=== PATIENT | female | born 1945 | race Hispanic/Latino ===

== ENCOUNTER 2019-05-18 08:23 | Day surgery (SDC) | payer OTHER ==
[2019-05-18 08:15] LABS: Absolute Lymphocytes (CBC) 2.6 K/uL (0.7-4.9); Basophils % 0.7 % (0-1.3); Hematocrit 42.3 % (36.0-45.0); Lymphocytes % 36.2 % (15.3-44.8); MPV 8.8 fL (7.6-11.3); RBC Red Blood Cell Count 4.31 M/uL (3.86-4.86)
[~2019-05-18 08:23] MED LIST: BACITRACIN 50000 UNIT VIAL ONE; GENTAMICIN 100 MG/100 ML BAG 0 ML IV ONE; GENTAMICIN SULF 80 MG/2ML INJ ONE; Ringers Lactate 0 ML IV ONE
[2019-05-18] MEDS ORDERED: propofoL 200 MG/20 ML VIAL IV ONE (08:26)
[2019-05-18] MEDS ORDERED: GLYCOPYRROLATE 0.2 MG/ML SYR ONE ×3 (08:26→12:35)
[2019-05-18] MEDS ORDERED: LIDOCAINE 2% MPF 5 ML VIAL ONE (08:26)
[2019-05-18] MEDS ORDERED: MIDAZOLAM HCL 2 MG/2 ML INJ ONE (08:26)
[2019-05-18] MEDS ORDERED: ROCURONIUM 50 MG/5 ML VIAL IV ONE (08:27)
[2019-05-18] MEDS ORDERED: FENTANYL CITR 250 MCG/5 ML ONE (08:27)
--- NOTE | 2019-05-18 08:32 | RAD REPORT ---
EXAM DESCRIPTION: BALAJINickolasteresa Single View05/18/2019 8:23 am CLINICAL HISTORY: Preop for breast augmentation COMPARISON: none FINDINGS: The lungs appear clear of acute infiltrate. The heart is normal size IMPRESSION: No acute abnormalities displayed
[2019-05-18] MEDS ORDERED: NS 0.9% VIAL 20 ML ONE ×2 (08:35→09:35)
[2019-05-18] MEDS ORDERED: SCOPOLAMINE HYDROBROMIDE PATCH TD ONE (08:43)
[2019-05-18 08:44] LABS: Urine Appearance CLEAR; Urine Bilirubin NEGATIVE (NEG); Urine Blood NEGATIVE (NEG); Urine Color YELLOW; Urine Glucose 3+ (NEG); Urine Protein NEGATIVE (NEG); Urine Specific Gravity 1.025 (1.005-1.030); Urine Urobilinogen 0.2 mg/dL (0.2-1.0); Urine pH 5.5 (5.0-7.0)
[2019-05-18] MEDS ORDERED: NA CHLORIDE 0.9% 1,000 ML ONE (08:44)
[2019-05-18 08:47] LABS: Urine Microscopic Reflex NO UMIC
[2019-05-18] MEDS ORDERED: CLINDAMYCIN INJ 300 MG in NA CHLORIDE 0.9% 50 ML IV ONE (09:00)
[2019-05-18] MEDS ORDERED: ONDANSETRON 4 MG/2 ML VIAL ONE ×2 (09:20→13:58)
[2019-05-18] MEDS ORDERED: LIDOCAINE 1% W/EPI 1:100,000 MDV 20 ML VIAL ONE ×2 (09:28→09:33)
[2019-05-18] MEDS ORDERED: EPHEDRINE SULF 50 MG/ML VIAL ONE (09:37)
[2019-05-18] MEDS: NA CHLORIDE 0.9% 2,000 ML ONE ×2 (10:31→10:56)
[2019-05-18] MEDS ORDERED: MORPHINE 10 MG/ML VIAL ONE (10:58)
--- NOTE | 2019-05-18 11:17 | EKG ---
Test Date: 2019-05-18 Test Time: 07:52:49 Vice President Of Instruction: NEAL MEASUREMENT RESULTS: Intervals: Rate: 78 OH: 158 QRSD: 78 QT: 374 QTc: 426 [place]: P: 28 OH: 158 QRS: 15 T: 63 INTERPRETIVE STATEMENTS: Normal sinus rhythm Cannot rule out Anterior infarct, age undetermined Abnormal ECG No previous ECG available for comparison Electronically Signed On 05-18-19 11:16:03 SCHEDULING SPECIALIST by Efren Castillo
[2019-05-18] MEDS ORDERED: NEOSTIGMINE 1 MG/ML -5 ML ONE (12:36)
[2019-05-18] MEDS ORDERED: Mastisol Adhesive Liq ONE (13:23)
--- NOTE | 2019-05-18 13:58 | OP ---
Surgeon: Bjorn Shelby MD Aerodynamics Professor: Andrei. Preoperative Diagnosis: Breast descent and enlargement, asymmetry. Postoperative Diagnosis: Breast descent and enlargement, asymmetry. Procedure: Breast lift with minimal reduction. Anesthesia: General. Procedure In Detail: After satisfactory induction of general anesthesia, the chest was prepped with DuraPrep and dry sterile drapes were applied in the usual manner. A 45 mm template was used to outli ne the right and left areolas. Then, transverse curvilinear incisions were made and the intervening skin was de-epithelized with dermabrader or EpiCut. Then, transverse incision and lateral incision w ere made. The flap was elevated of 1.1 cm thickness toward the sternum, clavicle, in the anterior ax illary line. After this was done, another lateral incision was made and the excess tissue was formed into a cone using 2-0 PDS sutures after the inferior incision was made. Then, the straps were eleva aleena from the 12 o'clock, 1:30, and 3 o'clock position in the right breast and then the straps were wo terrie in and out of the pectoralis major muscle, back to the base of the cone, back to the pectoralis m uscle, back to the base of the cone. The stent was done from 12 o'clock, 1:30 strap, 3 o'clock strap was sewn over sternum at the 3 o'clock position with 2-0 Ethibond. The left side was done in a mirr or image manner and the wounds were stapled shut. Dog ear was marked out laterally and then the surinder ent was placed supine. Dog ears were cut out. A JAN was brought out the axilla and was sewn in place with 2-0 silk, a 10 JAN, and then the wound was closed with 3-0 Vicryl subcu, 3-0 PDS running subcuti cular, tied in the vertical meridian of the breast. The patient was sat up again. Site for new nipp le-areola complex was marked out and then the nipples were delivered and sewn with interrupted 4-0 PD S followed by 4-0 PDS running subcuticular. Dressings of tincture of benzoin, Steri-Strips, 5 x 5's, fluffs, and Adonay wrap. The patient tolerated the procedure well and returned to the recovery room. The amount of tissue removed from the right breast was 96 g and the left breast was 168 g. MARLINE/LUDA Voice ID: [id number] Report ID: [id number]
[2019-05-18] MEDS ORDERED: KETOROLAC 30 MG/ML INJ ONE (13:59)
[2019-05-18] MEDS ORDERED: INSULIN -REGULAR HUMAN 50 UNIT/0.5 ML ML ONE (14:12)
[2019-05-18] MEDS: HYDROMORPHONE HCL 1 MG/ML INJ ONE ×2 (14:18→14:23)
[2019-05-18 14:22] VITALS: TEMP 98.4
[2019-05-18 15:38] VITALS: BP 117/52; O2SAT 94
[2019-05-18] MEDS ORDERED: CODEINE 30MG/APAP 300MG TAB ONE (16:01)
== END 2019-05-18 16:52 | disposition home or self-care (01) ==
LOC: OR 08:23
PROVIDERS: ATTEND Specialist
PROC: 0H0V0ZZ Alteration of Bilateral Breast, Open Approach (ICD-10-PCS; principal; 2019-05-18 09:00)
DX: N64.81 Ptosis of breast (principal); N62 Hypertrophy of breast; N64.89 Other specified disorders of breast; D24.2 Benign neoplasm of left breast; E11.9 Type 2 diabetes mellitus without complications; E03.9 Hypothyroidism, unspecified; Z88.0 Allergy status to penicillin
CPT/HCPCS: 93005; 85025; 36415; 82947 ×3; 88305; 81003; 71045; 19318; J2704; J1580; J2250; J3010; J1170; J2710; J7030 ×2; J2405 ×2; J7120